=== PATIENT | male | born 1970 | race Caucasian/White ===

== ENCOUNTER 2018-03-15 09:08 | Outpatient (CLI) | payer OTHER ==
[2018-03-15] VITALS (7 sets, daily range): BP systolic 118–143; BP diastolic 80–93; PULSE 65–82
[~2018-03-15] VITALS: Ht 182.9 cm; Wt 96.5 kg
[~2018-03-15 09:08] MED LIST: MOBIC15 MG PO; VESICARE 5MG5 MG PO
[2018-03-15 11:46] LABS: GLUCOSE,CSF 54 mg/dL (40-70); TOTAL PROTEIN,CSF 49 mg/dL (15-45)
[2018-03-15 13:02] LABS: CSF APPEARANCE CLEAR; CSF COLOR COLORLESS; CSF POLYMORPHONUCLEAR 0 % (0-6); CSF RBC 7 /mm3 (0-0)
[2018-03-15 13:03] LABS: CSF MONONUCLEAR 100 % (70-100)
== END 2018-03-15 12:11 | disposition home or self-care (01) ==
LOC: COL.RAD 09:08
PROVIDERS: Psychiatry & Neurology Neurology
DX: R20.2 Paresthesia of skin (principal); R90.89 Other abnormal findings on diagnostic imaging of central nervous system; R20.0 Anesthesia of skin